=== PATIENT | female | born 1940 | race Caucasian/White ===

== ENCOUNTER 2019-07-31 22:28 | Inpatient (IN) | payer OTHER, MEDICAID ==
[~2019-07-31] VITALS: Ht 167.6 cm; Wt 72.6 kg
[~2019-07-31 22:28] MED LIST: ACET-73 PO; CARB-61 PO; CARV25TA55 PO; DIGO125T79 PO; DILT30TA36 PO; FURO-149 PO; GLIP10TA21 PO; INSU100V11 SQ; LEVO125T PO; METF-381 PO; METF-510 PO; METF1000 PO; OMEP20CA11 PO; POTA10TA15 PO; PRAV40TA PO; SITA100T11 PO; WARF2.5T2 PO; WARF5TAB2 PO
[2019-07-31 22:33] VITALS: BP_SYST 90
--- NOTE | 2019-07-31 22:33 | NUR ---
Placed in room 2 . Placed on barback, blood pressure machine and pulse oximeter. To gown for exam. Side rails up. Report given to DENISE MARCIAL.
--- NOTE | 2019-07-31 22:40 | NUR ---
Pt BIB EMS from [facility] with c/o hypotension. Per facility, blood pressure was approximately 80/60. Pt A&Ox1. Per EMS, pt is DNR and on hospice. Per EMS, 18 gauge started in R AC. Pt has no complaints of pain. Will continue to monitor.
[2019-07-31] MEDS ORDERED: NACL 0.9% 2,100 ML IV ONE (22:52)
--- NOTE | 2019-07-31 22:52 | NUR ---
ER Dr. Dockery at bedside examining patient.
--- NOTE | 2019-07-31 23:08 | NUR ---
Laboratory at bedside.
[2019-07-31 23:20] LABS: BASOPHILS % (AUTO) 0.4 % (0.0-2.0); EOSINOPHILS % (AUTO) 0.4 % (0.0-4.0); HEMATOCRIT 32.5 % (36-48); HEMOGLOBIN 10.3 g/dL (12.0-16.0); LYMPHOCYTES # (AUTO) 1.4 K/uL (1.0-5.5); LYMPHOCYTES % (AUTO) 18.2 % (20.5-51.5); MEAN CORPUSCULAR HEMOGLOBIN 26 pg (27-31); MEAN CORPUSCULAR HGB CONC 32 % (32-36); MEAN CORPUSCULAR VOLUME 83 fL (79.0-98.0); MONOCYTES # (AUTO) 0.7 K/uL (0.0-1.0); MONOCYTES % (AUTO) 9.6 % (1.7-9.3); NEUTROPHILS # (AUTO) 5.5 K/uL (1.8-7.7); NEUTROPHILS % (AUTO) 71.4 % (40.0-70.0); PLATELET COUNT (AUTO) 130 K/uL (130-430); RED BLOOD CELL COUNT(AUTO) 3.94 MIL/uL (4.2-6.2); WHITE BLOOD COUNT (AUTO) 7.7 K/uL (4.8-10.8)
--- NOTE | 2019-07-31 23:23 | NUR ---
Radiology at bedside.
[2019-07-31 23:50] LABS: ANION GAP 11 (5-15); CALCIUM 8.7 mg/dL (8.4-11.0); CHLORIDE 106 mmol/L (98-107); GLUCOSE 266 mg/dL (70-99); SODIUM SERUM 140 mmol/L (136-145); UREA NITROGEN, BLOOD 64 mg/dL (8-21)
[2019-07-31 23:56] LABS: ALANINE AMINOTRANSFERASE 789 U/L (12-78); ALBUMIN 3.2 g/dL (3.4-4.8); ASPARTATE AMINOTRANSFERASE 416 U/L (10-37); TOTAL BILIRUBIN 0.5 mg/dL (0.0-1.0)
[2019-08-01] VITALS (20 sets, daily range): BP systolic 92–133
[2019-08-01] MEDS ORDERED: VANCOMYCIN HCL 1,000 MG in NS 250 ML IV ONE ×2
[2019-08-01 00:54] LABS: BILIRUBIN,URINE NEGATIVE (NEGATIVE); CLARITY/URINE CLEAR (CLEAR); COLOR,URINE YELLOW (YELLOW); GLUCOSE,URINE NEGATIVE (NEGATIVE); KETONES,URINE NEGATIVE (NEGATIVE); LEUKOCYTE ESTERASE ,URINE NEGATIVE (NEGATIVE); NITRITE, URINE NEGATIVE (NEGATIVE); PH,URINE 5.5 (5.0-8.0); PROTEIN URINE TRACE (NEGATIVE); UROBILINOGEN,URINE 0.2 (0.2-1.0)
[2019-08-01 00:57] LABS: BLOOD, URINE TRACE (NEGATIVE)
[2019-08-01 01:00] LABS: BACTERIA,URINE MODERATE /HPF (None Seen); HYALINE CASTS, URINE 0-10 /LPF (None Seen); WBC,URINE 0-3 /HPF (0-3)
--- NOTE | 2019-08-01 01:02 | NUR ---
Medicated pt with levaquin. Pt tolerated well.
--- NOTE | 2019-08-01 02:06 | NUR ---
Patient resting quietly. No acute distress noted. Will continue to monitor.
[2019-08-01] MEDS ORDERED: ESOM40CA53 PO (02:54)
[2019-08-01] MEDS ORDERED: VITD2000 PO (02:54)
[2019-08-01] MEDS ORDERED: ASA81 PO (02:54)
[2019-08-01] MEDS ORDERED: SENN8.6T19 PO (02:54)
[2019-08-01] MEDS ORDERED: GUAI-1081 PO (02:54)
[2019-08-01] MEDS ORDERED: COR6.25 PO (02:54)
[2019-08-01] MEDS ORDERED: FURO-150 PO (02:54)
[2019-08-01] MEDS ORDERED: INSU100V9 SQ (02:54)
[2019-08-01] MEDS ORDERED: CARB1TAB8 PO (02:54)
[2019-08-01] MEDS ORDERED: LOSA100T3 PO (02:54)
[2019-08-01] MEDS ORDERED: LEVO88TA5 PO (02:54)
[2019-08-01] MEDS ORDERED: MOM PO (02:54)
[2019-08-01] MEDS ORDERED: SUCR1TAB78 PO (02:54)
[2019-08-01] MEDS ORDERED: BISA5TAB10 PO (02:54)
[2019-08-01] MEDS ORDERED: POLY17PO4 PO (02:54)
[2019-08-01] MEDS ORDERED: GLIP10TA3 PO (02:54)
[2019-08-01] MEDS ORDERED: MEMA5TAB PO (02:54)
[2019-08-01] MEDS ORDERED: TRAZ-250 PO (02:54)
[2019-08-01] MEDS ORDERED: CRAN450C PO (02:54)
[2019-08-01] MEDS ORDERED: APIX5TAB4 PO (02:54)
[2019-08-01] MEDS ORDERED: ENULOSE PO (02:54)
[2019-08-01] MEDS ORDERED: AMLO5TAB4 PO (02:54)
[2019-08-01] MEDS ORDERED: GLUXR500 PO (02:54)
[2019-08-01] MEDS ORDERED: MORP10SO PO (02:54)
[2019-08-01] MEDS ORDERED: HYDR-3917 PO (02:54)
[2019-08-01] MEDS ORDERED: INSU100V SQ (02:54)
[2019-08-01] MEDS ORDERED: SER25 PO (02:54)
[2019-08-01] MEDS ORDERED: LORA-259 PO (02:54)
[2019-08-01] MEDS ORDERED: IPRA4AER INH (02:55)
[2019-08-01] MEDS ORDERED: ACET-2165 PO (02:55)
[2019-08-01] MEDS ORDERED: LORA2ORA PO (02:55)
[2019-08-01] MEDS ORDERED: BISACODYL SUPP RC (02:55)
--- NOTE | 2019-08-01 02:57 | NUR ---
Medication reconciliation completed with information provided by TIM WHITE. Any prior medication reconciliation on file was reviewed and corrected.
[2019-08-01] MEDS ORDERED: ALBUTEROL SULFATE 0.083% 2.5 MG/3 ML VIAL.NEB INH PRN (03:00)
[2019-08-01] MEDS ORDERED: NOREPINEPHRINE BITARTRATE 4 MG in D5W 246 ML IV PRN (03:00)
[2019-08-01] MEDS ORDERED: MORPHINE 2 MG/ML INJ. SYRINGE IVP PRN (03:00)
[2019-08-01] MEDS ORDERED: ONDANSETRON HCL 4 MG/2 ML VIAL IVP PRN (03:00)
[2019-08-01] MEDS ORDERED: MORPHINE 4 MG/ML INJ. SYRINGE IVP PRN (03:00)
[2019-08-01] MEDS ORDERED: NACL 0.9% 1,000 ML IV ONE (03:15)
--- NOTE | 2019-08-01 04:16 | NUR ---
Pt states "I am cold." Two warm blankets given to patient.
[2019-08-01] MEDS ORDERED: VANCOMYCIN HCL 1000 MG/VIAL IV ONE (04:54)
--- NOTE | 2019-08-01 05:36 | NUR ---
Levophed 4mg/250mL was started at 2mcg/min.
--- NOTE | 2019-08-01 05:37 | NUR ---
[facility] Admitted to ICU unit. Will go to room 2. Belongings list completed. Complete and up to date summary report printed. SBAR report to be given at bedside with opportunity for questions.
--- NOTE | 2019-08-01 05:38 | NUR ---
Transfer to ICU bed 2 via ACLS protocol. Licensed nurse present. IV present no signs or symptoms of infiltration.
[2019-08-01] MEDS ORDERED: NOREPINEPHRINE 4 MG/4 ML VIAL IV ONE (05:42)
--- NOTE | 2019-08-01 05:46 | NUR ---
Levophed 4mg/250mL was titrated up to at 4mcg/min. BP was 97/56.
--- NOTE | 2019-08-01 05:56 | NUR ---
Levophed 4mg/250mL was titrated up to at 6mcg/min.
[2019-08-01] MEDS: NACL 0.9% 1,000 ML IV SCH ×2 (06:02→13:15)
--- NOTE | 2019-08-01 06:05 | NUR ---
ER ADMIT Pt admitted to ICU 2 via gurney, accompanied by ER ACLS staff. Pt oriented to self only. Speech clear. Pupils 2mm ENZO, Lungs: right lung field clear, Left lung field with wheezing, fine crackles present bases. Heart beat irregular. Trace pedal edema present. Radial pulse normal and palpable, pedal pulses normal and palpable. Skin intact, right foot with bunion, slight redness noted. right forearm 22ga, and left forearm 22ga both started by ER staff, no redness or swelling noted @ sites. Levophed @ 6mcg/min infusing, Vancomycin 1gm infusing, NS liter bolus infusing.
--- NOTE | 2019-08-01 07:15 | NUR ---
Received patient from [facility] shift nurse. In no acute distress. Patient awake and alert x 3, person, place, event. Greeted patient. Breathing even and unlabored on 3 liters O2 NC. Side rails x 3 up, call light with in reach.
[2019-08-01 08:22] LABS: BASOPHILS # (AUTO) 0.1 K/uL (0.0-0.2); BASOPHILS % (AUTO) 0.5 % (0.0-2.0); EOSINOPHILS # (AUTO) 0.2 K/uL (0.0-0.4); EOSINOPHILS % (AUTO) 2.1 % (0.0-4.0); HEMATOCRIT 32.7 % (36-48); HEMOGLOBIN 10.3 g/dL (12.0-16.0); LYMPHOCYTES # (AUTO) 1.3 K/uL (1.0-5.5); LYMPHOCYTES % (AUTO) 12.8 % (20.5-51.5); MEAN CORPUSCULAR HEMOGLOBIN 26 pg (27-31); MEAN CORPUSCULAR HGB CONC 31 % (32-36); MEAN CORPUSCULAR VOLUME 83 fL (79.0-98.0); MONOCYTES # (AUTO) 0.8 K/uL (0.0-1.0); MONOCYTES % (AUTO) 7.7 % (1.7-9.3); NEUTROPHILS # (AUTO) 7.8 K/uL (1.8-7.7); NEUTROPHILS % (AUTO) 76.9 % (40.0-70.0); PLATELET COUNT (AUTO) 140 K/uL (130-430); RED BLOOD CELL COUNT(AUTO) 3.94 MIL/uL (4.2-6.2); RED CELL DISTRIBUTION WIDTH 19.2 % (9.0-15.0); WHITE BLOOD COUNT (AUTO) 10.2 K/uL (4.8-10.8)
[2019-08-01 08:33] LABS: ALANINE AMINOTRANSFERASE 796 U/L (12-78); ALBUMIN 3.1 g/dL (3.4-4.8); ANION GAP 9 (5-15); ASPARTATE AMINOTRANSFERASE 278 U/L (10-37); CALCIUM 8.1 mg/dL (8.4-11.0); CHLORIDE 108 mmol/L (98-107); GLUCOSE 185 mg/dL (70-99); POTASSIUM 4.6 mmol/L (3.5-5.1); SODIUM SERUM 141 mmol/L (136-145); TOTAL BILIRUBIN 0.6 mg/dL (0.0-1.0); UREA NITROGEN, BLOOD 58 mg/dL (8-21)
--- NOTE | 2019-08-01 09:17 | NUR ---
MD Barone paged regarding troponin 5.255, AST 278, ALT 796. New order consult of MD Baca for drafter electrical and MD Palacios for GI. Informed MD Baca, stated patient not covered under insurance. MD Barone paged and again to inform new drafter electrical request. Md Palacios paged. Orders placed.
--- NOTE | 2019-08-01 09:32 | NUR ---
Called Sammy Garcia with a GI consult. Dr. Pantoja sales and leasing consultant today spoke with Jess from the exchange
--- NOTE | 2019-08-01 10:09 | NUR ---
Dr. Gurrola with a consult, spoke with Evelyn from the exchange
--- NOTE | 2019-08-01 10:20 | NUR ---
Called Dr. Handley with a consult, Dr. Coreas dictaphone typist at this time.
[2019-08-01] MEDS ORDERED: FAMOTIDINE PF 20 MG/2 ML VIAL IVP ONE (10:30)
[2019-08-01] MEDS: DILTIAZEM HCL 30 MG TABLET PO SCH ×3 (13:00→20:53)
--- NOTE | 2019-08-01 14:30 | NUR ---
MD Robledo at bedside.
--- NOTE | 2019-08-01 15:30 | NUR ---
MD Gurrola at bedside. Informed MD Gurrola 02 NC increase, new order to keep 02 sat over 88 via NC.
--- NOTE | 2019-08-01 17:20 | NUR ---
Informed MD Gurrola heart rate raising to 170s, new order to rid parameters of not giving blood pressure medications if systolic under 125. Orders placed and carried out.
--- NOTE | 2019-08-01 19:20 | NUR ---
Gave report and patient to NOC shift nurse. In no acute distress. Side rails x 3 up. Call light with in reach.
--- NOTE | 2019-08-01 19:25 | NUR ---
PM SHIFT ASSESSMENT Pt is A/OX2. O2 via NC @ 4L, RR even and unlabored. Afib noted on the monitor. Skin warm and dry. IVF infusing, no signs of infiltration noted. Desai catheter in place and draining to gravity. Safety precautions in place, call light within reach. Will continue to monitor.
[2019-08-01] MEDS: MEMANTINE HCL 5 MG TABLET PO SCH (20:53)
[2019-08-01] MEDS: FUROSEMIDE 20 MG TABLET PO SCH (20:53)
[2019-08-01] MEDS: BISACODYL 5 MG TABLET.DR (DULCOLAX) PO SCH (20:53)
[2019-08-01] MEDS: CARVEDILOL 6.25 MG TABLET (COREG) PO SCH (20:54)
[2019-08-01] MEDS: LEVOFLOXACIN 250 MG/D5W 50 ML IV SCH (20:54)
[2019-08-02] VITALS (24 sets, daily range): BP systolic 87–140
--- NOTE | 2019-08-02 04:30 | NUR ---
Levophed drip off. BP stable. Will continue to monitor.
[2019-08-02] MEDS: LEVOTHYROXINE SODIUM 0.088 MG TABLET PO SCH (06:25)
[2019-08-02] MEDS: VANCOMYCIN HCL 750 MG in NS 250 ML IV SCH (06:25)
--- NOTE | 2019-08-02 07:09 | NUR ---
ENDORSEMENT Report given using nursing SBAR. All patient care endorsed.
[2019-08-02 07:54] LABS: BASOPHILS % (AUTO) 0.4 % (0.0-2.0); EOSINOPHILS # (AUTO) 0.1 K/uL (0.0-0.4); EOSINOPHILS % (AUTO) 0.7 % (0.0-4.0); HEMATOCRIT 31.3 % (36-48); HEMOGLOBIN 10.1 g/dL (12.0-16.0); LYMPHOCYTES # (AUTO) 0.6 K/uL (1.0-5.5); LYMPHOCYTES % (AUTO) 7.8 % (20.5-51.5); MEAN CORPUSCULAR HEMOGLOBIN 26 pg (27-31); MEAN CORPUSCULAR HGB CONC 32 % (32-36); MEAN CORPUSCULAR VOLUME 82 fL (79.0-98.0); MONOCYTES # (AUTO) 0.8 K/uL (0.0-1.0); MONOCYTES % (AUTO) 10.8 % (1.7-9.3); NEUTROPHILS # (AUTO) 5.8 K/uL (1.8-7.7); NEUTROPHILS % (AUTO) 80.3 % (40.0-70.0); PLATELET COUNT (AUTO) 124 K/uL (130-430); RED BLOOD CELL COUNT(AUTO) 3.85 MIL/uL (4.2-6.2); RED CELL DISTRIBUTION WIDTH 18.7 % (9.0-15.0); WHITE BLOOD COUNT (AUTO) 7.2 K/uL (4.8-10.8)
[2019-08-02 08:49] LABS: ALANINE AMINOTRANSFERASE 677 U/L (12-78); ALBUMIN 2.9 g/dL (3.4-4.8); ANION GAP 10 (5-15); ASPARTATE AMINOTRANSFERASE 85 U/L (10-37); CALCIUM 7.8 mg/dL (8.4-11.0); CHLORIDE 106 mmol/L (98-107); CREATININE 1.26 mg/dL (0.55-1.30); GLUCOSE 260 mg/dL (70-99); POTASSIUM 4.3 mmol/L (3.5-5.1); SODIUM SERUM 139 mmol/L (136-145); TOTAL BILIRUBIN 0.7 mg/dL (0.0-1.0); UREA NITROGEN, BLOOD 36 mg/dL (8-21)
[2019-08-02] MEDS: POLYETHYLENE GLYCOL 3350, 17 GM/ POWD.PACK PO SCH (09:00)
[2019-08-02] MEDS: DILTIAZEM HCL 30 MG TABLET PO SCH ×5 (09:00→20:08)
[2019-08-02] MEDS ORDERED: amLODIPine BESYLATE 5 MG TABLET PO SCH (09:00)
[2019-08-02] MEDS ORDERED: QUEtiapine FUMARATE 25 MG TABLET PO SCH (09:00)
[2019-08-02 09:06] LABS: HEPATITIS A AB, IgM Negative (Negative); HEPATITIS B CORE AB, IgM Negative (Negative); HEPATITIS B SURFACE AG Negative (Negative)
[2019-08-02] MEDS: DIGOXIN 0.125 MG TABLET PO SCH (09:51)
[2019-08-02] MEDS: ASPIRIN 81 MG TAB.CHEW PO SCH (09:51)
[2019-08-02] MEDS: FUROSEMIDE 20 MG TABLET PO SCH ×2 (09:51→21:18)
[2019-08-02] MEDS: BISACODYL 5 MG TABLET.DR (DULCOLAX) PO SCH ×2 (09:52→20:08)
[2019-08-02] MEDS: MEMANTINE HCL 5 MG TABLET PO SCH (09:52)
[2019-08-02] MEDS: CARVEDILOL 6.25 MG TABLET (COREG) PO SCH ×2 (09:53→20:09)
[2019-08-02] MEDS: FAMOTIDINE PF 20 MG/2 ML VIAL IVP SCH (09:53)
[2019-08-02] MEDS: INSULIN GLARGINE 100 UNITS/ML 10 ML VIAL SQ SCH (09:55)
--- NOTE | 2019-08-02 10:45 | NUR ---
Nutrition Update Fermin Scale 17 noted. Pt admitted for hypotension. Diet: soft (low fiber/bland) BMI: 25.8 kg/m2 RD to follow per nutrition care standards.
--- NOTE | 2019-08-02 17:45 | NUR ---
Informed MD Johnson of blood sugar this morning 213 and if can transfer patient to tele unit. MD Johnson ordered patient to stay in ICU. New order of sliding scale ACHS and regular insulin as coverage. Orders placed and carried out.
--- NOTE | 2019-08-02 18:09 | NUR ---
Informed MD Gurrola of patient's systolic ranging from 80s to 90s and lethargic stated. New order to discontinue seroquel, namena, IV fluids, and continue levodopa order from home. Orders placed and carried out.
--- NOTE | 2019-08-02 19:15 | NUR ---
OPENING NOTE/PM ASSESSMENT SBAR REPORT RECEIVED FROM KIARA MARCIAL. CARE ASSUMED. PT LAYING IN BED. PT ANO X2. PT ON 2L O2 VIA NASAL CANULA. PT ATRIAL FIBRILLATION ON MONITOR. NO EDEMA NOTED. PT HAS 22G IV TO RIGHT FOREARM RUNNING NS 3ML/HR AND 22 G IV TO LEFT FOREARM SALINE LOCKED.PT HAS ZENG CATHETER DRAINING TO GRAVITY. URINE YELLOW CLEAR. SKIN INTACT. NO ACUTE DISTRESS NOTED. BED LOCKED IN LOWEST POSITION. SAFETY PRECAUTIONS IN PLACE. CALL LIGHT WITH IN REACH. WILL CONTINUE TO MONITOR.
--- NOTE | 2019-08-02 19:15 | NUR ---
Endorsed patient and report to oncoming nurse. Endorsed to receive consent for MRI tomorrow. Patient in no acute distress. Side rails x 3 up. Call light with in reach.
[2019-08-02] MEDS: LEVOFLOXACIN 250 MG/D5W 50 ML IV SCH (19:53)
[2019-08-02] MEDS: INSULIN REGULAR, HUMAN 100 UNITS/ML, 10 ML VIAL (humuLIN R) SUBCUT PRN (20:17)
[2019-08-02] MEDS: CARBIDOPA/LEVODOPA 10/100 MG TABLET PO SCH (21:00)
[2019-08-02] MEDS ORDERED: DILTIAZEM HCL 25 MG/5 ML VIAL IVP ONE ×2 (21:15)
--- NOTE | 2019-08-02 22:30 | NUR ---
MD UPDATE DR. SYKES AT BEDSIDE. ORDERS UPDATED. WILL CONTINUE TO MONITOR.
[2019-08-02] MEDS ORDERED: DILTIAZEM HCL 30 MG TABLET PO ONE (23:45)
[2019-08-03] VITALS (16 sets, daily range): BP systolic 87–107
[2019-08-03] MEDS ORDERED: APIXABAN 2.5 MG TABLET PO SCH (01:00)
[2019-08-03] MEDS ORDERED: NOREPINEPHRINE BITARTRATE 4 MG in D5W 246 ML IV PRN (04:30)
[2019-08-03] MEDS: VANCOMYCIN HCL 750 MG in NS 250 ML IV SCH (05:25)
[2019-08-03 06:09] LABS: HEMOGLOBIN 9.5 g/dL (12.0-16.0)
[2019-08-03 06:20] LABS: ALANINE AMINOTRANSFERASE 465 U/L (12-78); ALBUMIN 2.4 g/dL (3.4-4.8); ANION GAP 7 (5-15); ASPARTATE AMINOTRANSFERASE 47 U/L (10-37); CALCIUM 7.7 mg/dL (8.4-11.0); CHLORIDE 104 mmol/L (98-107); CREATININE 1.14 mg/dL (0.55-1.30); DIGOXIN 0.3 ng/mL (0.80-2.00); GLUCOSE 205 mg/dL (70-99); SODIUM SERUM 135 mmol/L (136-145); TOTAL BILIRUBIN 0.5 mg/dL (0.0-1.0); UREA NITROGEN, BLOOD 32 mg/dL (8-21)
[2019-08-03 06:26] LABS: BASOPHILS % (AUTO) 0.3 % (0.0-2.0); EOSINOPHILS % (AUTO) 0.8 % (0.0-4.0); HEMATOCRIT 29.9 % (36-48); LYMPHOCYTES # (AUTO) 0.8 K/uL (1.0-5.5); LYMPHOCYTES % (AUTO) 13.2 % (20.5-51.5); MEAN CORPUSCULAR HEMOGLOBIN 26 pg (27-31); MEAN CORPUSCULAR HGB CONC 32 % (32-36); MEAN CORPUSCULAR VOLUME 82 fL (79.0-98.0); MONOCYTES # (AUTO) 0.7 K/uL (0.0-1.0); MONOCYTES % (AUTO) 12.8 % (1.7-9.3); NEUTROPHILS # (AUTO) 4.2 K/uL (1.8-7.7); NEUTROPHILS % (AUTO) 72.9 % (40.0-70.0); PLATELET COUNT (AUTO) 112 K/uL (130-430); RED BLOOD CELL COUNT(AUTO) 3.65 MIL/uL (4.2-6.2); RED CELL DISTRIBUTION WIDTH 18.3 % (9.0-15.0); WHITE BLOOD COUNT (AUTO) 5.8 K/uL (4.8-10.8)
[2019-08-03] MEDS: LEVOTHYROXINE SODIUM 0.088 MG TABLET PO SCH (06:44)
[2019-08-03] MEDS: INSULIN REGULAR, HUMAN 100 UNITS/ML, 10 ML VIAL (humuLIN R) SUBCUT PRN ×4 (06:47→21:32)
--- NOTE | 2019-08-03 07:26 | NUR ---
CLOSING NOTE SBAR REPORT GIVEN TO YONAS MARCIAL. PT IN NO APPARENT DISTRESS. CARE ENDORSED.
--- NOTE | 2019-08-03 07:30 | NUR ---
Opening Note Received patient report via SBAR communication from endorsing nurse
--- NOTE | 2019-08-03 08:00 | NUR ---
Round Dr. Boogie at bedside assessing patient, no new orders
[2019-08-03] MEDS: ASPIRIN 81 MG TAB.CHEW PO SCH (08:30)
[2019-08-03] MEDS: FUROSEMIDE 20 MG TABLET PO SCH ×2 (08:30→22:00)
[2019-08-03] MEDS: BISACODYL 5 MG TABLET.DR (DULCOLAX) PO SCH ×2 (08:30→21:07)
[2019-08-03] MEDS: DIGOXIN 0.125 MG TABLET PO SCH (08:31)
[2019-08-03] MEDS: DILTIAZEM HCL 30 MG TABLET PO SCH ×4 (08:31→22:00)
[2019-08-03] MEDS: CARVEDILOL 6.25 MG TABLET (COREG) PO SCH ×2 (08:32→21:08)
[2019-08-03] MEDS: CARBIDOPA/LEVODOPA 10/100 MG TABLET PO SCH ×3 (08:32→21:07)
[2019-08-03] MEDS: APIXABAN 2.5 MG TABLET PO SCH ×2 (08:34→21:09)
[2019-08-03] MEDS: FAMOTIDINE PF 20 MG/2 ML VIAL IVP SCH (08:37)
[2019-08-03] MEDS: INSULIN GLARGINE 100 UNITS/ML 10 ML VIAL SQ SCH (08:37)
[2019-08-03] MEDS: POLYETHYLENE GLYCOL 3350, 17 GM/ POWD.PACK PO SCH (08:38)
[2019-08-03 09:10] LABS: FERRITIN 48 ng/mL (15-150)
--- NOTE | 2019-08-03 09:15 | NUR ---
Round Dr. Núñez at bedside assessing patient, physician entered orders
--- NOTE | 2019-08-03 10:40 | NUR ---
Nursing Note Patient transported via [facility], following ACLS guidelines, to have MRI and CT scan as ordered. Patient connected to cardiac nurse specialist and accompanied with ACLS certified RN.
--- NOTE | 2019-08-03 12:30 | NUR ---
Nursing Note Patient returned to unit via [facility], connected to dough mixer, accompanied by ACLS certified RN. Patient tolerated MRI and CT tests well, patient in no apparent distress.
--- NOTE | 2019-08-03 13:11 | NUR ---
Nutrition Assessment (short note d/t lack of time) Admit Dx: Hypotension PMH: CHF, DM, Parkinson's Dz, S/P CABG, pacemaker. A- RD reviewed pt's current EMR including diet Hx, physician notes, nursing notes, pertinent labs/meds/procedures, care trends and care activity. RD Notification received. Patient seen in bed, just arrived back from MRI w/ brother and RN at bedside. Per RN, pt was NPO for breakfast, lunch tray untouched. Pt reported good appetite and is feeling hungry and ready to eat. She confirmed anthropometrics, reported low fat diet at [facility]. Pt denied any food allergy, N/V, or any difficulty chewing or swallowing. Brother at bedside reported that pt did not eat yesterday at pt was "out of it". Nutrition education was not yet appropriate. Current Diet Order: GI Soft diet w/ Fluid restriction 1500ml/day x 2 days Ht: 5'6 Wt: 160#/ 73 kg BMI: 25.8 kg/m2 (Overweight but appropriate for age) %IBW: 123 IBW: 130#/ 59 kg ESTIMATED NUTRITIONAL REQUIREMENTS CALORIES/DAY: 0082-6817 kcal/day (30-35 kcal/kg IBW for sepsis) PROTEIN/DAY: 47-89 gm/day (0.8-1.5 gm/kg IBW for Renal Dz predialysis and sepsis) FLUID/DAY: 1.5 L/day (Fluid restriction per MD) D: 1. Altered nutrition-related labs r/t endocrine dysfunction AEB elevated BG and POC BG lab values. I: 1. Recommend [facility] GI Soft diet. 2. Encourage pt to increase PO intake. 3. Consider ONS if PO intake is <75% by next RD visit. M: Monitor appetite and PO intake w/ goal of pt meeting at least 75% of estimated nutritional needs, labs trending WNL, normal GI function, skin integrity/wt maintenance. E: RD to F/U within 2-3 days [facility]
--- NOTE | 2019-08-03 13:20 | NUR ---
Dietitian Recommendation 1. Recommend [facility] GI Soft diet. 2. Encourage pt to increase PO intake. 3. Consider ONS if PO intake is <75% by next RD visit. Please see Nutritional Assessment for details. [facility], RD
--- NOTE | 2019-08-03 16:10 | NUR ---
PT TRANSFERRED Patient transferred via hospital bed, following ACLS guidelines, attached to monitor tech, accompanied by ACLS certified RN. Report given to receiving nurse, AGGIE Doyle at bedside in room 121A. All belongings and medications sent with patient. Patient tolerated transfer well, no signs of distress.
--- NOTE | 2019-08-03 16:20 | NUR ---
Received from ICU Received patient from icu via hospital bed. Patient admitted with diagnosis of hypotension. Patient is awake, alert, oriented X 2. Patient oriented to hospital room, call light, toileting, pain management and safety-teach back done. Call light within reach.
--- NOTE | 2019-08-03 19:20 | NUR ---
Closing Notes Patient alert, awake and verbally responsive, denies any pain or discomfort at this time, on 02 at 2lpm via NC, IV saline lock in place and intact. Desai catheter intact and in place, draining to urine bag via gravity. Fall precaution observed, bed alarm on, bed at lowest position. Call light within the reach, SBAR report given at bedside to night worker RN.
--- NOTE | 2019-08-03 20:10 | NUR ---
OPENING NOTE RECEIVED REPORT FROM DAY SHIFT RN, PATIENT IS RESTING IN BED, AWAKE, A&OX2, REORIENTED PATIENT TO PERSON, PLACE, TIME, AND EVENT, EVEN AND UNLABORED BREATHING ON 2L NC, SKIN INTACT NEAR NC, NO COMPLAINTS OF PAIN AT THIS TIME, IV SITE TO RIGHT AND LEFT FOREARM ARE SALINE LOCKED, PATENT/BENIGN, ZENG CATHETER IN PLACE AND DRAINING YELLOW TO GRAVITY, SAFETY AND FALL PRECAUTIONS IN PLACE, BED LOCKED AND IN LOWEST POSITION, BED ALARM ON, THREE SIDE RAILS UP, SCDs IN PLACE, CALL LIGHT WITH PATIENT, WILL CONTINUE CARE.
[2019-08-03] MEDS: LEVOFLOXACIN 250 MG/D5W 50 ML IV SCH (21:07)
--- NOTE | 2019-08-03 21:32 | NUR ---
BD=314 PATIENT RESTING IN BED, NO SIGNS OF ACUTE DISTRESS, PATIENT'S BLOOD SUGAR 200, REGULAR INSULIN INDICTED PER MD ORDER, ADMINISTERED 2 UNITS PER SLIDING SCALE, PATIENT TOLERATED WELL, FALL AND SAFETY PRECAUTIONS IN PLACE, CALL LIGHT WITH PATIENT, WILL CONTINUE TO MONITOR.
--- NOTE | 2019-08-04 00:05 | NUR ---
RN ROUNDS PATIENT IS RESTING IN BED, EYES CLOSED, TOLERATING 2L NC, NO SIGNS OF ACUTE DISTRESS, IV TO BOTH RIGHT AND LEFT AC SL, ZENG CATHETER DRAINING TO GRAVITY, SAFETY AND FALL PRECAUTIONS IN PLACE, CALL LIGHT WITH PATIENT, WILL CONTINUE TO MONITOR.
[2019-08-04 00:06] VITALS: BP_SYST 94
--- NOTE | 2019-08-04 05:30 | NUR ---
MOVED TO 124B MOVED PATIENT TO ROOM 124B, ALL BELONGINGS MOVED WITH PATIENT, PATIENT MOVED VIA HOSPITAL BED, PATIENT TOLERATED WELL, BED LOCKED AND IN LOWEST POSITION, BED ALARM ON, THREE SIDE RAILS UP, FALL AND SAFETY PRECAUTIONS IN PLACE, CALL LIGHT WITH PATIENT, WILL CONTINUE TO MONITOR.
[2019-08-04] MEDS ORDERED: VANCOMYCIN HCL 1000 MG/VIAL IV ONE (06:25)
[2019-08-04] MEDS: LEVOTHYROXINE SODIUM 0.088 MG TABLET PO SCH (06:28)
[2019-08-04] MEDS: INSULIN REGULAR, HUMAN 100 UNITS/ML, 10 ML VIAL (humuLIN R) SUBCUT PRN ×2 (06:35→11:31)
--- NOTE | 2019-08-04 06:35 | NUR ---
DN=863 PATIENT RESTING IN BED, NO SIGNS OF ACUTE DISTRESS, PATIENT'S BLOOD SUGAR 182, REGULAR INSULIN INDICTED PER MD ORDER, ADMINISTERED 2 UNITS PER SLIDING SCALE, PATIENT TOLERATED WELL, FALL AND SAFETY PRECAUTIONS IN PLACE, CALL LIGHT WITH PATIENT, WILL CONTINUE TO MONITOR.
[2019-08-04] MEDS: VANCOMYCIN HCL 750 MG in NS 250 ML IV SCH (06:40)
--- NOTE | 2019-08-04 06:40 | NUR ---
Vancomycin: Vancomycin 750 MG IVPB scheduled for 0600 not found in med rooms in [facility], [facility], and ICU. supervisor litharge retrieved 1 GM vial as 750 MG vial is not available. 250 MG was wasted from 1 GM vial to achieve ordered dose of 750 MG, medication administered as ordered, 6 rights reviewed as barcode was not scannable. Risk incident report submitted.
--- NOTE | 2019-08-04 07:00 | NUR ---
CLOSING NOTE PATIENT IS RESTING IN BED, AWAKE, EVEN AND UNLABORED BREATHING ON 2L NC, SKIN INTACT NEAR NC, NO COMPLAINTS OF PAIN AT THIS TIME, IV SITE TO LEFT FOREARM INFUSING IV FLUIDS PER MD ORDER, PATENT/BENIGN, ZENG CATHETER IN PLACE AND DRAINING YELLOW TO GRAVITY, SAFETY AND FALL PRECAUTIONS IN PLACE, BED LOCKED AND IN LOWEST POSITION, BED ALARM ON, THREE SIDE RAILS UP, CALL LIGHT WITH PATIENT, WILL ENDORSE CARE TO DAYSHIFT RN.
--- NOTE | 2019-08-04 07:30 | NUR ---
Opening Notes Patient received lying comfortably in her bed alert, awake and verbally responsive, able to verbalize needs and concerns, denies any pain or discomfort at this time. On 02 at 2lpm via NC, respiration even and unlabored. Discussed plan of care, and importance using of call light, patient verbalized understanding. Fall precaution observed, bed at lowest position, bed alarm on. Call light within the reach. Will continue to monitor.
[2019-08-04 08:00] VITALS: BP_SYST 125
[2019-08-04] MEDS: DIGOXIN 0.125 MG TABLET PO SCH (09:00)
[2019-08-04] MEDS: CARVEDILOL 6.25 MG TABLET (COREG) PO SCH (09:12)
[2019-08-04] MEDS: DILTIAZEM HCL 30 MG TABLET PO SCH ×2 (09:14→13:20)
[2019-08-04] MEDS: FUROSEMIDE 20 MG TABLET PO SCH (09:16)
[2019-08-04] MEDS: FAMOTIDINE PF 20 MG/2 ML VIAL IVP SCH (09:17)
[2019-08-04] MEDS: ASPIRIN 81 MG TAB.CHEW PO SCH (09:17)
[2019-08-04] MEDS: BISACODYL 5 MG TABLET.DR (DULCOLAX) PO SCH (09:17)
[2019-08-04] MEDS: CARBIDOPA/LEVODOPA 10/100 MG TABLET PO SCH (09:17)
[2019-08-04] MEDS: POLYETHYLENE GLYCOL 3350, 17 GM/ POWD.PACK PO SCH (09:25)
[2019-08-04] MEDS: APIXABAN 2.5 MG TABLET PO SCH (09:26)
[2019-08-04] MEDS: INSULIN GLARGINE 100 UNITS/ML 10 ML VIAL SQ SCH (09:27)
--- NOTE | 2019-08-04 09:30 | NUR ---
Tachycardia Patient noted with tachycardia at 170, coreg and cardizem given as ordered, well tolerated, patient have history of Afib, heart rate went down to 130, remain to be alert, awake and verbally responsive. Denies any pain or discomfort. Call light within the reach.
--- NOTE | 2019-08-04 10:30 | NUR ---
Dr. Núñez Seen and examined by MD, will follow-up on new orders.
--- NOTE | 2019-08-04 11:15 | NUR ---
CONSULTATION PAGED/CALLED Reason for Consultation: PNEUMONIA Person Who was Notified: Consulting Physician: Director Of Distance Learning Specialty:PULMO Ordering Physician: DR.JANDIAL SARABIA IS AWARE
--- NOTE | 2019-08-04 11:30 | NUR ---
RN ROUNDS Patient on 02 at 2lpm via NC, denies any pain or discomfort. Attended to needs and anticipated. Respiration even and unlabored. Call light within the reach.
[2019-08-04 12:25] VITALS: BP_SYST 117
--- NOTE | 2019-08-04 13:30 | NUR ---
Dr. Galileo Marcus MD at unit, notified regarding tachycardia in am, MD aware. Will follow-up for any new orders.
[2019-08-04 14:06] LABS: ANTI NUCLEAR AB WITH REFLEX Negative (Negative)
[2019-08-04] MEDS ORDERED: LEVO500T89 PO (14:06)
[2019-08-04 14:24] VITALS: BP_SYST 104
--- NOTE | 2019-08-04 15:20 | NUR ---
D/C Patient Patient given medication reconciliation form and D/C instructions. Exit Care provided. Patient verbalized understanding. MD discussed with patient the results and treatment provided. Ambulatory with steady gait for discharge to [facility]. Patient in stable condition, ID band removed. IV catheter removed, intact and dressing applied, no active bleeding. Patient educated on pain management. All belongings sent with patient. Patient picked up by transportation department of [facility] via wheelchair.
== END 2019-08-04 15:15 | disposition home or self-care (01) | DRG 871 ==
LOC: SED 22:28 → SIC 08-01 00:55 → STU 08-03 16:21
PROVIDERS: ADMIT Internal Medicine Hospice and Palliative Medicine; ATTEND Internal Medicine Hospice and Palliative Medicine
DX: A41.9 Sepsis, unspecified organism (principal); R65.21 Severe sepsis with septic shock; J18.9 Pneumonia, unspecified organism; K72.00 Acute and subacute hepatic failure without coma; N39.0 Urinary tract infection, site not specified; E87.2 Acidosis; N17.9 Acute kidney failure, unspecified; I42.0 Dilated cardiomyopathy; I48.19 Other persistent atrial fibrillation; E11.22 Type 2 diabetes mellitus with diabetic chronic kidney disease; E78.5 Hyperlipidemia, unspecified; F02.80 Dementia in other diseases classified elsewhere, unspecified severity, without behavioral disturbance, psychotic disturbance, mood disturbance, and anxiety; G20 Parkinson's disease; I25.10 Atherosclerotic heart disease of native coronary artery without angina pectoris; I50.9 Heart failure, unspecified; K59.09 Other constipation; N18.9 Chronic kidney disease, unspecified; Z66 Do not resuscitate; I34.1 Nonrheumatic mitral (valve) prolapse; F19.10 Other psychoactive substance abuse, uncomplicated; Z82.49 Family history of ischemic heart disease and other diseases of the circulatory system; Z83.3 Family history of diabetes mellitus; Z86.718 Personal history of other venous thrombosis and embolism; Z95.0 Presence of cardiac pacemaker; Z95.1 Presence of aortocoronary bypass graft; Z79.899 Other long term (current) drug therapy; Z88.0 Allergy status to penicillin; Z88.8 Allergy status to other drugs, medicaments and biological substances
CPT/HCPCS: 36415; 36600; 71045; 74181; 76700-TC; 80053; 80074; 80162-TC; 81000-TC; 82728; 82803-TC; 82962; 83605; 84484; 85025; 86038; 87040-TC; 87081; 87086; 93306; 94640; 96361; 96365; 99291; G0378; J1815; J1956; J2270; J3370; J3490; J7050; J7060; J7613

== ENCOUNTER 2019-08-10 01:06 | Inpatient (IN) | payer OTHER, MEDICAID ==
[~2019-08-10] VITALS: Ht 170.2 cm; Wt 82.1 kg
[~2019-08-10 01:06] MED LIST changes: +ACET-2165 PO; -ACET-73 PO; +AMLO5TAB4 PO; +APIX5TAB4 PO; +ASA81 PO; +BISA5TAB10 PO; +BISACODYL SUPP RC; -CARB-61 PO; +CARB1TAB8 PO; -CARV25TA55 PO; +COR6.25 PO; +CRAN450C PO; +ENULOSE PO; +ESOM40CA53 PO; -FURO-149 PO; +FURO-150 PO; -GLIP10TA21 PO; +GLIP10TA3 PO; +GLUXR500 PO; +GUAI-1081 PO; +HYDR-3917 PO; +INSU100V SQ; -INSU100V11 SQ; +INSU100V9 SQ; +IPRA4AER INH; -LEVO125T PO; +LEVO500T89 PO; +LEVO88TA5 PO; +LORA-259 PO; +LORA2ORA PO; +LOSA100T3 PO; +MEMA5TAB PO; -METF-381 PO; -METF-510 PO; -METF1000 PO; +MOM PO; +MORP10SO PO; -OMEP20CA11 PO; +POLY17PO4 PO; +SENN8.6T19 PO; +SER25 PO; -SITA100T11 PO; +SUCR1TAB78 PO; +TRAZ-250 PO; +VITD2000 PO; -WARF2.5T2 PO; -WARF5TAB2 PO
[2019-08-10 01:09] VITALS: BP_SYST 93
--- NOTE | 2019-08-10 01:16 | NUR ---
Placed in room 7 . Placed on surveillance system monitor, blood pressure machine and pulse oximeter. To gown for exam. Side rails up. Report given to AGGIE Sandoval.
--- NOTE | 2019-08-10 01:16 | NUR ---
Medication reconciliation completed with information provided by facility. Any prior medication reconciliation on file was reviewed and corrected.
--- NOTE | 2019-08-10 01:20 | NUR ---
Patient came into the ER from [facility]. Per Hospice nurse there was a change of LOC and patient is now lethargic. Patient is AOx3. Checked blood sugar and was 203. Patient laying in gurney and verbal. Not presenting any signs of acute distress.
--- NOTE | 2019-08-10 02:11 | NUR ---
Xray at bedside, pt tolerated well.
[2019-08-10 02:24] LABS: BASOPHILS % (AUTO) 0.3 % (0.0-2.0); EOSINOPHILS % (AUTO) 0.5 % (0.0-4.0); HEMATOCRIT 34.8 % (36-48); HEMOGLOBIN 10.8 g/dL (12.0-16.0); LYMPHOCYTES # (AUTO) 0.7 K/uL (1.0-5.5); LYMPHOCYTES % (AUTO) 8.8 % (20.5-51.5); MEAN CORPUSCULAR HEMOGLOBIN 26 pg (27-31); MEAN CORPUSCULAR HGB CONC 31 % (32-36); MEAN CORPUSCULAR VOLUME 83 fL (79.0-98.0); MONOCYTES # (AUTO) 0.4 K/uL (0.0-1.0); MONOCYTES % (AUTO) 4.4 % (1.7-9.3); NEUTROPHILS # (AUTO) 7.1 K/uL (1.8-7.7); PLATELET COUNT (AUTO) 183 K/uL (130-430); RED BLOOD CELL COUNT(AUTO) 4.22 MIL/uL (4.2-6.2); RED CELL DISTRIBUTION WIDTH 19.2 % (9.0-15.0); WHITE BLOOD COUNT (AUTO) 8.2 K/uL (4.8-10.8)
[2019-08-10 02:31] LABS: ANION GAP 4 (5-15); CHLORIDE 109 mmol/L (98-107); CREATININE 1.26 mg/dL (0.55-1.30); GLUCOSE 228 mg/dL (70-99); POTASSIUM 4.2 mmol/L (3.5-5.1); SODIUM SERUM 146 mmol/L (136-145); UREA NITROGEN, BLOOD 23 mg/dL (8-21)
[2019-08-10 02:36] LABS: ALANINE AMINOTRANSFERASE 98 U/L (12-78); ALBUMIN 2.8 g/dL (3.4-4.8); ASPARTATE AMINOTRANSFERASE 36 U/L (10-37); TOTAL BILIRUBIN 0.4 mg/dL (0.0-1.0)
--- NOTE | 2019-08-10 02:59 | NUR ---
# 22 gauge angiocath placed to R hand. Use of asceptic technique. Opsite placed over site. Blood return noted. Blood for lab drawn from site. Flushed with 10 cc of normal saline. No evidence of infiltration noted. Patient tolerated well.
--- NOTE | 2019-08-10 03:03 | NUR ---
Patient transported to radiology via gurney, accompanied by rad staff.
[2019-08-10] MEDS ORDERED: NACL 0.9% 1,000 ML IV ONE (03:30)
--- NOTE | 2019-08-10 04:00 | NUR ---
Patient bradycardic with rate of 47. Patient not displaying any acute distress and is able to conversate with me. MD aware.
[2019-08-10 04:41] LABS: BILIRUBIN,URINE NEGATIVE (NEGATIVE); BLOOD, URINE NEGATIVE (NEGATIVE); CLARITY/URINE CLEAR (CLEAR); COLOR,URINE YELLOW (YELLOW); GLUCOSE,URINE NEGATIVE (NEGATIVE); KETONES,URINE NEGATIVE (NEGATIVE); LEUKOCYTE ESTERASE ,URINE NEGATIVE (NEGATIVE); NITRITE, URINE NEGATIVE (NEGATIVE); PROTEIN URINE NEGATIVE (NEGATIVE); UROBILINOGEN,URINE 0.2 (0.2-1.0)
--- NOTE | 2019-08-10 06:40 | NUR ---
Patient will be admitted to care of RN. Admitted to Tele unit. Will go to room 121C. Belongings list completed. Complete and up to date summary report printed. SBAR report to be given at bedside with opportunity for questions.
--- NOTE | 2019-08-10 06:48 | NUR ---
Patient arrived to room 121c. monitoring tech in place. Patient running uncontrolled Afib 140s. Skin warm dry and intact. Will endorse to day shift RN.
--- NOTE | 2019-08-10 06:51 | NUR ---
ADMIT NOTE Received pt from ER to the floor with a diagnosis of bradycardic. Admission process initiated. patient oriented to pain management, safety and call light-pt is confused.
[2019-08-10 06:52] VITALS: BP_SYST 116
--- NOTE | 2019-08-10 07:00 | NUR ---
Call placed to physician's exchange. Awaiting return call.
--- NOTE | 2019-08-10 08:00 | NUR ---
AM NOTED- IN BED AWAKE, DROWSY. KNOWS NAME AND BIRTHDATE. ON O2 2L, TOLERATING WELL. DENIES ANY CHEST PAIN. HR 90, AFIB ON THE MONITOR. SAFETY PRECAUTION OBSERVED. BED ALARM ON. CALL LIGHT WITHIN REACH. WILL MONITOR.
[2019-08-10 08:07] VITALS: BP_SYST 118
[2019-08-10] MEDS ORDERED: HYDROcodone/ACETAMIN 5-325 MG TAB (NORCO/ VICODIN) PO PRN (08:30)
[2019-08-10] MEDS ORDERED: ALBUTEROL SULFATE 0.083% 2.5 MG/3 ML VIAL.NEB INH PRN (08:30)
[2019-08-10] MEDS ORDERED: guaiFENesin/DEXTROMETHORPHAN 10 ML UDC PO PRN (08:30)
[2019-08-10] MEDS ORDERED: MORPHINE SULFATE 10 MG/5 ML ORAL SOL. UDC PO PRN (08:30)
[2019-08-10] MEDS ORDERED: LORazepam 1 MG TABLET PO PRN (08:30)
[2019-08-10 08:31] VITALS: BP_SYST 118
--- NOTE | 2019-08-10 08:31 | NUR ---
MD ROUNDS- SEEN BY DR. NIXON AT BEDSIDE.
--- NOTE | 2019-08-10 08:51 | NUR ---
CONSULT CARDIOLOGY ELEVATED TROPONIN DR SINHA [phone] S/W RICH EXCHANGE
[2019-08-10] MEDS ORDERED: FUROSEMIDE 20 MG TABLET PO SCH (09:00)
[2019-08-10] MEDS ORDERED: BISACODYL 5 MG TABLET.DR (DULCOLAX) PO SCH (09:00)
[2019-08-10] MEDS ORDERED: CARVEDILOL 6.25 MG TABLET (COREG) PO SCH (09:00)
[2019-08-10] MEDS ORDERED: POLYETHYLENE GLYCOL 3350, 17 GM/ POWD.PACK PO SCH (09:00)
[2019-08-10] MEDS ORDERED: ASPIRIN 81 MG TAB.CHEW PO SCH (09:00)
[2019-08-10] MEDS ORDERED: PANTOPRAZOLE SODIUM 40 MG TAB PO SCH (09:00)
[2019-08-10] MEDS ORDERED: INSULIN GLARGINE 100 UNITS/ML 10 ML VIAL SQ SCH (09:00)
[2019-08-10] MEDS ORDERED: LEVOTHYROXINE SODIUM 0.088 MG TABLET PO SCH (09:00)
[2019-08-10] MEDS ORDERED: MILK OF MAGNESIA 30 ML UDC PO SCH (09:00)
[2019-08-10] MEDS ORDERED: LEVOFLOXACIN 500 MG TABLET PO SCH (09:00)
[2019-08-10] MEDS ORDERED: QUEtiapine FUMARATE 25 MG TABLET PO SCH (09:00)
[2019-08-10] MEDS ORDERED: LOSARTAN POTASSIUM 50 MG TABLET (COZAAR) PO SCH (09:00)
[2019-08-10] MEDS ORDERED: amLODIPine BESYLATE 5 MG TABLET PO SCH (09:00)
[2019-08-10] MEDS ORDERED: MEMANTINE HCL 5 MG TABLET PO SCH (09:00)
[2019-08-10] MEDS ORDERED: SENNOSIDES 8.6 MG TABLET PO SCH (09:00)
[2019-08-10] MEDS ORDERED: APIXABAN 2.5 MG TABLET PO SCH (09:00)
[2019-08-10] MEDS ORDERED: D5W 1,000 ML IV PRN (10:00)
[2019-08-10] MEDS ORDERED: GLUCOSE 15 GM GEL (in 37.5 GM TUBE) PO PRN (10:00)
[2019-08-10] MEDS ORDERED: DEXTROSE 50%-WATER 50 ML DISP.SYRIN IVP PRN (10:00)
[2019-08-10] MEDS: CARBIDOPA/LEVODOPA 10/100 MG TABLET PO SCH ×2 (11:03→16:22)
[2019-08-10] MEDS: SUCRALFATE 1 GM TABLET PO SCH ×3 (11:06→16:22)
[2019-08-10 11:57] VITALS: BP_SYST 96
[2019-08-10 12:00] LABS: BASOPHILS % (AUTO) 0.4 % (0.0-2.0); EOSINOPHILS % (AUTO) 0.3 % (0.0-4.0); HEMATOCRIT 39.4 % (36-48); LYMPHOCYTES # (AUTO) 0.4 K/uL (1.0-5.5); LYMPHOCYTES % (AUTO) 5.1 % (20.5-51.5); MEAN CORPUSCULAR HEMOGLOBIN 25 pg (27-31); MEAN CORPUSCULAR HGB CONC 31 % (32-36); MEAN CORPUSCULAR VOLUME 83 fL (79.0-98.0); MONOCYTES # (AUTO) 0.4 K/uL (0.0-1.0); MONOCYTES % (AUTO) 5.3 % (1.7-9.3); NEUTROPHILS # (AUTO) 7.2 K/uL (1.8-7.7); NEUTROPHILS % (AUTO) 88.9 % (40.0-70.0); PLATELET COUNT (AUTO) 141 K/uL (130-430); RED BLOOD CELL COUNT(AUTO) 4.75 MIL/uL (4.2-6.2); RED CELL DISTRIBUTION WIDTH 18.9 % (9.0-15.0); WHITE BLOOD COUNT (AUTO) 8.1 K/uL (4.8-10.8)
--- NOTE | 2019-08-10 12:00 | NUR ---
NOTES- IN BED, WATCHING TV. DENIES ANY CHEST PAIN OR SHORTNESS OF BREATH. REPOSITIONED FOR COMFORT. WILL CONTINUE TO MONITOR. Addendum: 08/10/19 at 1655 by Lisa Hazel RN TIME OCCURED AT 1400
--- NOTE | 2019-08-10 12:00 | NUR ---
Notes- In bed, with eyes closed. no acute distress noted. daughter at bedside trying to feed patient lunch. pt able to take her meds earlier with apple sauce. will continue to monitor.
[2019-08-10] MEDS: INSULIN LISPRO SLIDING SCALE 100 UNITS/ML VIAL (humaLOG) SUBCUT PRN ×2 (12:26→16:36)
[2019-08-10 13:55] LABS: ALANINE AMINOTRANSFERASE 124 U/L (12-78); ALBUMIN 2.9 g/dL (3.4-4.8); ANION GAP 5 (5-15); ASPARTATE AMINOTRANSFERASE 36 U/L (10-37); CALCIUM 8.6 mg/dL (8.4-11.0); CHLORIDE 105 mmol/L (98-107); CREATININE 1.31 mg/dL (0.55-1.30); GLUCOSE 302 mg/dL (70-99); POTASSIUM 4.3 mmol/L (3.5-5.1); SODIUM SERUM 143 mmol/L (136-145); TOTAL BILIRUBIN 0.4 mg/dL (0.0-1.0); UREA NITROGEN, BLOOD 25 mg/dL (8-21)
--- NOTE | 2019-08-10 16:30 | NUR ---
MD ROUNDS SEEN BY DR. SYKES. INFORMED MD TO CALL DAUGHTER, PHONE NUMBER PROVIDED.
--- NOTE | 2019-08-10 17:00 | NUR ---
Notes- Pt unable to cough, although pt denies shortness of breath. Called RT for breathing treatment as needed.
[2019-08-10 17:16] LABS: DIGOXIN 0.2 ng/mL (0.80-2.00)
--- NOTE | 2019-08-10 17:27 | NUR ---
bladder scan- pt is not voiding a lot. Bladder scan shows 420 ml.. Addendum: 08/10/19 at 1736 by Lisa Hazel RN pagefatemeh Núñez. waiting for to call back.
--- NOTE | 2019-08-10 18:27 | NUR ---
Notes- re paged Dr. Núñez again for the second time. waiting for MD to call back.
[2019-08-10 18:28] VITALS: BP_SYST 114
[2019-08-10 18:29] LABS: INR 1.3 (0.8-1.2); PROTHROMBIN TIME 12.7 SECS (9.5-12.5)
--- NOTE | 2019-08-10 18:35 | NUR ---
spoke to Dr. Núñez and ordered to put espinosa catheter.
--- NOTE | 2019-08-10 18:49 | NUR ---
Notes- Desai catheter inserted as ordered, with yellow output of 300ml in the bag. Pt is drowsy able to respond. denies any pain. on o2 2l. All needs meet. Will endorse
--- NOTE | 2019-08-10 20:53 | NUR ---
Patient Patient is DNR per code status form signed by RN and MD. Patient has no pulse, no respirations, no BP, no O2 saturation reading, pronounced by this RN and Nicolas MARCIAL at 2052.
[2019-08-10] MEDS ORDERED: LACTULOSE 20 GM/30 ML UDC PO SCH (21:00)
[2019-08-10] MEDS ORDERED: traZODone HCL 50 MG TABLET (DESYREL) PO SCH (21:00)
[2019-08-10] MEDS ORDERED: ATORVASTATIN 10 MG TABLET PO SCH (21:00)
--- NOTE | 2019-08-10 21:14 | NUR ---
[facility] Called [facility] at [phone], spoke with Jocelyn, stated that patient was not a candidate for [facility], provided reference number: [id number].
--- NOTE | 2019-08-10 22:13 | NUR ---
[facility] [phone], lead customer service representative stated patient is not a coroners case, stated ok to release remains to mortuary.
--- NOTE | 2019-08-10 23:30 | NUR ---
Spoke with Dr. Johnson at 2203, made aware of patient's condition. 2206 Spoke with patient's daughter , made aware of patient's expiration. Call placed to [facility] 2212. Mortuary staff stated ETA in one hour. 0 Mortuary staff here for remain pickup. Addendum: 08/11/19 at 0017 by Wilian Galindo RN Mortuary arrived at 2319, not 2219.
== END 2019-08-10 20:53 | disposition expired ==
LOC: SED 01:06 → STU 04:36
PROVIDERS: ADMIT Internal Medicine Hospice and Palliative Medicine; ATTEND Internal Medicine Hospice and Palliative Medicine
DX: I21.4 Non-ST elevation (NSTEMI) myocardial infarction (principal); G93.41 Metabolic encephalopathy; I48.20 Chronic atrial fibrillation, unspecified; E44.1 Mild protein-calorie malnutrition; E11.9 Type 2 diabetes mellitus without complications; I49.5 Sick sinus syndrome; G20 Parkinson's disease; F02.80 Dementia in other diseases classified elsewhere, unspecified severity, without behavioral disturbance, psychotic disturbance, mood disturbance, and anxiety; E03.9 Hypothyroidism, unspecified; I50.9 Heart failure, unspecified; Z66 Do not resuscitate; Z83.3 Family history of diabetes mellitus; Z79.01 Long term (current) use of anticoagulants; Z86.718 Personal history of other venous thrombosis and embolism; Z95.1 Presence of aortocoronary bypass graft; Z79.899 Other long term (current) drug therapy; Z88.0 Allergy status to penicillin; Z79.4 Long term (current) use of insulin; Z88.8 Allergy status to other drugs, medicaments and biological substances
CPT/HCPCS: 36415; 70450-TC; 71045; 80053; 80162-TC; 81003; 82962; 84484; 85025; 85610-TC; 87040-TC; 87081; 87086; 93005; 94640; 94760; 96360; 99285; G0378; J1815; J7030; J7613